=== PATIENT | male | born 1965 | race Caucasian/White ===

== ENCOUNTER 2021-04-11 06:31 | Day surgery (SDC) | payer BC, SELFPAY ==
[2021-01-09 11:40] VITALS: BMI 32.4
[2021-04-04 15:31] VITALS: BMI 32.8
--- NOTE | 2021-04-10 13:21 | HO.ANESPROP2 ---
Documented by User: Shy Sweeney NP 04/10/21 13:23 HPI - Anesthesia Eval Consult details Narrative: 55yo M for Colonoscopy [facility] Past Medical History Medical History (Updated 01/09/21 @ 11:34 by Maddy Alexis, SARA) Cholelithiasis Diabetes mellitus, type II H/O degenerative disc disease Hepatic steatosis History of colon polyps Hyperlipidemia Hypertension Nephrolithiasis ABRAHAM (obstructive sleep apnea) Surgical History Surgical History (Updated 04/04/21 @ 15:29 by Maddy Alexis, RN) History of tonsillectomy and adenoidectomy Hx of colonoscopy Social History Social History (Updated 04/04/21 @ 15:28 by Maddy Alexis, SARA) Patient Tobacco Use Status: Former Tobacco user Quit Date: years ago Tobacco use type: Cigarette Use of substances other than those prescribed or required for medical reasons: No Are you DNR?: No Advance Directives: No Advance Directives Information Provided: Yes Advance Directives on File: No Poor oral hygiene: No Meds Allergies Allergy/AdvReac Type Severity Reaction Status Date / Time No Known Allergies Allergy Verified 04/10/21 13:23 Home Medications Medication Instructions Recorded Confirmed Last Taken Type amlodipine 5 mg-benazepril 20 mg 1 cap PO DAILY 01/09/21 01/09/21 Unknown History capsule atorvastatin 80 mg tablet 80 mg PO BEDTIME 01/09/21 01/09/21 Unknown History metformin 500 mg tablet 1,000 mg PO DAILY@1700 01/09/21 01/09/21 Unknown History metoprolol succinate 100 mg 100 mg PO DAILY 01/09/21 04/11/21 04/11/21 History tablet,extended release 24 hr 0530 terbinafine HCl 250 mg tablet 250 mg PO DAILY 01/09/21 01/09/21 Unknown History Exam Exam Date and Time: April 10, 2021 132 Height,Weight and Vital Signs: Height 5 ft 11 in Weight 106.594 kg Assessment and Plan Assessment Anesthesia Assessment: Chart Reviewed Documented by User: Elia Brownqas 04/11/21 09:24 [facility] Past Medical History Medical History (Updated 01/09/21 @ 11:34 by Maddy Alexis, SARA) Cholelithiasis Diabetes mellitus, type II H/O degenerative disc disease Hepatic steatosis History of colon polyps Hyperlipidemia Hypertension Nephrolithiasis ABRAHAM (obstructive sleep apnea) Functional capacity: independent ambulation Family History Family history of problems with anesthesia: No Surgical History Surgical History (Updated 04/04/21 @ 15:29 by Maddy Alexis, SARA) History of tonsillectomy and adenoidectomy Hx of colonoscopy History of Problems with Anesthesia: No Social History Social History (Updated 04/04/21 @ 15:28 by Maddy Alexis RN) Patient Tobacco Use Status: Former Tobacco user Quit Date: years ago Tobacco use type: Cigarette Use of substances other than those prescribed or required for medical reasons: No Are you DNR?: No Advance Directives: No Advance Directives Information Provided: Yes Advance Directives on File: No Poor oral hygiene: No Meds Allergies Allergy/AdvReac Type Severity Reaction Status Date / Time No Known Allergies Allergy Verified 04/10/21 13:23 Home Medications Medication Instructions Recorded Confirmed Last Taken Type amlodipine 5 mg-benazepril 20 mg 1 cap PO DAILY 01/09/21 01/09/21 Unknown History capsule atorvastatin 80 mg tablet 80 mg PO BEDTIME 01/09/21 01/09/21 Unknown History metformin 500 mg tablet 1,000 mg PO DAILY@1700 01/09/21 01/09/21 Unknown History metoprolol succinate 100 mg 100 mg PO DAILY 01/09/21 04/11/21 04/11/21 History tablet,extended release 24 hr 0530 terbinafine HCl 250 mg tablet 250 mg PO DAILY 01/09/21 01/09/21 Unknown History Exam Airway Mallampati Class: III TM Dist: >3cm Neck ROM: Full Loose/Missing/Broken Teeth: Yes (Chipped front , crown ) Heart: rrr Lungs: bl breath sounds Assessment and Plan Assessment Anesthesia Assessment: Anesthesia Plan Discussed Final Anesthetic Review Family History of Problems with Anesthesia: No History of Problems with Anesthesia: No NPO: Yes ASA Class: III Final Preanesthetic Review: Meds/Allgs Chart Reviewed, Consent Obtained/Reviewed and Anes Risks/Benef Reviewed Patient Risk: Intermediate Procedure Risk: Intermediate Anesthetic Plan Anesthetic Plan: MAC: Disposition: Standard PACU
[2021-04-11 06:50] VITALS: BP 125/73; PULSE 60; RESP 17; TEMP 36.4; O2SAT 96; BMI 32.5
[2021-04-11 06:59] LABS: Glucose, Whole Blood 80 mg/dL (60-115)
[2021-04-11] MEDS: Lactated Ringers 1,000 ML 100 ML IVCONT (07:04)
--- NOTE | 2021-04-11 07:19 | MHC.SHP ---
Pre-Procedural Eval Section A Date of Service: 04/11/21 Section B Chief Complaint: screening Details of Present Illness: see H&P no changes Relevant Family History (Specify if Yes): No Relevant Social History: None Present Medications: see Short Stay Collaborative assessment Medical History: No relevant PMH Allergies: Allergies Allergy/AdvReac Type Severity Reaction Status Date / Time No Known Allergies Allergy Verified 04/10/21 13:23 Review of Systems Sugical H&P ROS: Negative: Constitution, Cardiovascular, Respiratory, Neurological, Psychiatric, Hem-Onc, Allergic/Immunologic, Gastrointestinal, Genitourinary, Musculoskeletal, Integumentary, Endocrine and Eyes/Ears/Nose/Throat Exam Surgical H&P Exam: Normal: HEENT, Normal: Heart, Normal: Lungs, Normal: Extremities, Normal: Abdomen, Normal: Skin and Normal: Neurological Plan Diagnosis/Plan: Unchanged I have reviewed the history and physical and performed a pertinent physical examination on my patient. No changes have occurred unless specified.
[2021-04-11 07:58] VITALS: BP 94/49; PULSE 58; RESP 18; TEMP 36.6; O2SAT 98
--- NOTE | 2021-04-11 08:02 | P.BOP_ITS ---
Brief Operative Note Date of Service: 04/11/21 Pre-op diagnosis: screening Post-op diagnosis: same (colon polyp) Surgeon: Henry Pickett Anesthesia: MAC Was an Application Specialist used for this Procedure?: No Estimated blood loss (mL): 2 Pathology: other (rectal polyp) Condition: stable Disposition: PACU
[2021-04-11 08:15] VITALS: BP 101/52; PULSE 58; RESP 16; TEMP 36.6; O2SAT 96
--- NOTE | 2021-04-11 08:23 | OP_ITS ---
SURGEON: Henry Pickett MD INDICATIONS: Colon cancer screening and prior history of adenomatous colon polyps. PREOPERATIVE DIAGNOSIS: POSTOPERATIVE DIAGNOSIS: PROCEDURE PERFORMED: Colonoscopy to the terminal ileum with biopsy. ESTIMATED BLOOD LOSS: COMPLICATIONS: ANESTHESIA: Medications, monitored anesthesia care. ASSISTANTS: SPECIMENS: DESCRIPTION OF PROCEDURE: The history and physical was performed. The risks and benefits of the procedure were explained to the patient. Informed consent was obtained. The patient was placed in the left lateral decubitus position. A digital rectal exam was performed and was found to be normal. The Olympus pediatric video colonoscope was introduced into the rectum and advanced to the cecum without difficulty. The cecum was identified by transillumination, palpation, and identification of ileocecal valve. Examination was performed. The scope was removed. He tolerated the procedure well and was returned to the recovery area in stable condition. FINDINGS: The terminal ileum was normal. The visualized colonic mucosa was within normal limits without evidence of masses or ulcers. The quality of the prep was good. A single polyp in the rectum measuring less than 5 mm was identified and removed with biopsy forceps. No other polyps were identified. There was sigmoid diverticulosis with scattered diverticula throughout the remainder of the colon. Retroflexed examination showed some small internal hemorrhoids. IMPRESSION: Colon polyp. RECOMMENDATION: Follow up the biopsy results. MD MARIELENA Bond/LEA / [id number]
== END 2021-04-11 09:00 | disposition home or self-care (01) ==
PROVIDERS: PCP Internal Medicine Geriatric Medicine; Visit Provider Internal Medicine Gastroenterology
PROC: 0DJD8ZZ Inspection of Lower Intestinal Tract, Via Natural or Artificial Opening Endoscopic (ICD-10-PCS; CPT 45378; principal; 2021-04-11 07:30)
DX: Z12.11 Encounter for screening for malignant neoplasm of colon (principal); Z86.010 Personal history of colon polyps; K62.1 Rectal polyp; K57.30 Diverticulosis of large intestine without perforation or abscess without bleeding; K64.8 Other hemorrhoids; K76.0 Fatty (change of) liver, not elsewhere classified; I10 Essential (primary) hypertension; G47.33 Obstructive sleep apnea (adult) (pediatric); E78.5 Hyperlipidemia, unspecified; E11.9 Type 2 diabetes mellitus without complications; Z79.84 Long term (current) use of oral hypoglycemic drugs; Z79.899 Other long term (current) drug therapy
CPT/HCPCS: 45385; 82947; 88305